=== PATIENT | male | born 1950 | race Caucasian/White ===

== ENCOUNTER → 2017-03-29 | Outpatient (CLI) | payer OTHER ==
--- NOTE | 2017-03-29 13:27 | KCIC ---
MR of the left humerus HISTORY: Painful lump at the left arm. Swelling. FINDINGS: No bone lesion. No acute fracture. No marrow edema. No soft tissue mass is identified. No abnormal soft tissue fluid collection or edema. No evidence of an encapsulated lipoma. IMPRESSION: No significant abnormality Electronically signed by: Ned Mack MD (03/29/2017 1:24 PM) [id number]
== END | disposition home or self-care (01) ==
LOC: KCIC MRI 10:18
DX: R22.32 Localized swelling, mass and lump, left upper limb (principal); M79.89 Other specified soft tissue disorders
CPT/HCPCS: 73218